=== PATIENT | male | born 1995 | race Hispanic/Latino ===

== ENCOUNTER 2019-01-16 10:34 | Emergency (ER) | payer BC ==
[~2019-01-16] VITALS: Ht 170.2 cm; Wt 74.8 kg
--- NOTE | 2019-01-16 10:43 | NUR ---
Called at this time, pt outside talking on the phone.
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
== END 2019-01-16 11:10 | disposition home or self-care (01) ==
LOC: ER 10:34
DX: S01.511A Laceration without foreign body of lip, initial encounter (principal); S00.33XA Contusion of nose, initial encounter; S80.212A Abrasion, left knee, initial encounter; S80.211A Abrasion, right knee, initial encounter; Y04.0XXA Assault by unarmed brawl or fight, initial encounter; Y92.89 Other specified places as the place of occurrence of the external cause
CPT/HCPCS: 99282